=== PATIENT | female | born 1990 | race Caucasian/White ===

== ENCOUNTER 2021-10-27 01:31 | Inpatient (IN) ==
[2021-10-27] MEDS ORDERED: Lactated Ringers 1000 ml BAG 1,000 ML IV ONE (02:08)
[2021-10-27] MEDS ORDERED: Dibucaine 1% OINT 28.35 GM TUBE PR PRN (02:20)
[2021-10-27] MEDS ORDERED: Witch Hazel PAD JAR TOPICAL PRN (02:20)
[2021-10-27] MEDS ORDERED: Lidocaine 1% VIAL 10 MG/ML VIAL ONE (02:37)
[2021-10-27] MEDS ORDERED: Methylergonovine 0.2 mg AMPULE 1 ml AMP ONE (02:38)
[2021-10-27] MEDS ORDERED: Oxytocin 10 UNITS/ML 1 ML VIAL ONE (02:40)
[2021-10-28 07:09] LABS: ABS Basophils 0.1 10^3/ul (0-0.2); ABS Eosinophils 0.4 10^3/ul (0-0.6); ABS Lymphocytes 2.3 10^3/ul (1.0-4.8); ABS Monocytes 0.7 10^3/ul (0-0.8); ABS Neutrophils 7.5 10^3/ul (1.5-7.7); Eosinophil % 3.4 %; Hematocrit 35 % (35-47); Hemoglobin 12.3 g/dL (12.0-16.0); Mean Corpuscular HGB Conc 35 g/dL (31-36); Mean Corpuscular Hemoglobin 32 pg (27-31); Mean Corpuscular Volume 91 fL (80-97); Mean Platelet Volume 9.4 fL (7.4-10.4); Platelet Count 159 10^3/uL (150-450); Red Cell Distribution Width 12 % (10-15); White Blood Count 10.9 10^3/uL (3.5-10.8)
[2021-10-29 08:04] VITALS: BP 124/61
== END 2021-10-29 16:25 | disposition home or self-care (01) | DRG 806 ==
LOC: MCHOBOUT 01:31 → MCHOB 01:47
PROVIDERS: ADMIT Midwife; ATTEND Midwife